=== PATIENT | female | born 2000 | race Caucasian/White ===

== ENCOUNTER 2020-10-05 13:35 | Inpatient (IN) | payer BC ==
[~2020-10-05] VITALS: Ht 147.3 cm; Wt 34.0 kg
--- NOTE | 2020-10-05 14:01 | NUR ---
THE PATIENT BIB [facility] FROM HOME,WITNESSED SEIZURE. ALERT AND ORIENTED X4. DENIES PAIN. IN ROOM AIR AND DENIES SOB. RESPIRATION REGULAR AND UNLABORED. WILL CONTINUE TO MONITOR THE PATIENT.
[2020-10-05] MEDS ORDERED: IV NS 0.9% 500 ML BAG IV ONE (14:30)
--- NOTE | 2020-10-05 14:56 | NUR ---
URINE COLLECTED AND SENT TO LAB
--- NOTE | 2020-10-05 14:57 | NUR ---
PATIENT TAKEN TO CT IN STABLE CONDITION
--- NOTE | 2020-10-05 15:01 | NUR ---
THE PATIENT IS BACK FROM CT IN STABLE CONDITION
[2020-10-05 15:14] LABS: BASOPHILS % (AUTO) 0.6 % (0.0-2.0); EOSINOPHILS % (AUTO) 1.3 % (0.0-6.0); HEMATOCRIT 35 % (33-45); HEMOGLOBIN 11.6 g/dL (11.5-14.8); LYMPHOCYTES # (AUTO) 0.6 K/uL (0.8-4.8); LYMPHOCYTES % (AUTO) 33.1 % (20.0-44.0); MEAN CORPUSCULAR HGB CONC 33 g/dl (31.0-36.0); MEAN CORPUSCULAR VOLUME 90 fL (82-100); MONOCYTES # (AUTO) 0.2 K/uL (0.1-1.30); MONOCYTES % (AUTO) 10.5 % (2.0-12.0); NEUTROPHILS % (AUTO) 54.5 % (43.0-81.0); PLATELET COUNT (AUTO) 153 K/uL (150-450); RED BLOOD CELL COUNT(AUTO) 3.87 MIL/uL (4.0-5.2)
[2020-10-05 15:15] LABS: CALCIUM, SERUM 8.4 mg/dL (8.5-10.1); CARBON DIOXIDE 31 mmol/L (21-32); CHLORIDE 106 mmol/L (98-107); CREATININE 0.7 mg/dL (0.6-1.3); GLUCOSE 151 mg/dL (74-106); POTASSIUM 3.3 mmol/L (3.5-5.1); SODIUM SERUM 144 mmol/L (136-145); UREA NITROGEN, BLOOD 9 mg/dL (7-18)
[2020-10-05 15:20] LABS: ALANINE AMINOTRANSFERASE 42 U/L (12-78); ALBUMIN 4.3 g/dL (3.4-5.0); ALCOHOL, BLOOD < 3 mg/dL (0-0); ALKALINE PHOSPHATASE 123 U/L (46-116); ASPARTATE AMINOTRANSFERASE 25 U/L (15-37); BILIRUBIN,DIRECT 0.1 mg/dL (0.0-0.2); BILIRUBIN,TOTAL 0.2 mg/dL (0.2-1.0); TOTAL PROTEIN, SERUM 6.6 g/dL (6.4-8.2)
[2020-10-05 15:25] LABS: WHITE BLOOD COUNT (AUTO) 1.8 K/uL (4.3-11.0)
--- NOTE | 2020-10-05 15:50 | NUR ---
LAB CALLED LACTIC ACID 2.5 INFORMED.
[2020-10-05] MEDS ORDERED: IV NS 0.9% 1,000 ML BAG IV ONE (16:00)
--- NOTE | 2020-10-05 16:08 | NUR ---
MOVE SHEET SUBMITTED AND CALLED FOR TELE BED.
[2020-10-05 16:20] LABS: BAND % (MANUAL) 1 % (0.0-5.0); LYMPHOCYTES % (MANUAL) 32 % (16-48); MONOCYTES % (MANUAL) 5 % (0-11.0); NEUTROPHILS % (MANUAL) 60 (42-76)
[2020-10-05 16:21] LABS: EOSINOPHILS % (MANUAL) 2 % (0-4)
[2020-10-05] MEDS ORDERED: LEVETIRACETAM (500MG) 500 MG in IV NS 0.9% 100 ML IV SCH (16:30)
--- NOTE | 2020-10-05 16:35 | NUR ---
[facility] CALLED, EYE GLASS FRAME POLISHER PAGED.
[2020-10-05 16:44] LABS: BILIRUBIN,URINE NEGATIVE (NEGATIVE); COLOR,URINE YELLOW (YELLOW); LEUKOCYTE ESTERASE ,URINE NEGATIVE (NEGATIVE); NITRITE, URINE NEGATIVE (NEGATIVE); PROTEIN,URINE NEGATIVE (NEGATIVE); UGLUCOSE NEGATIVE (NEGATIVE); UROBILINOGEN,URINE 0.2 EU/dL (0.2)
--- NOTE | 2020-10-05 16:58 | NUR ---
COVID SWAB DONE AND SENT TO THE LAB
[2020-10-05] MEDS ORDERED: MAGNESIUM HYDROXIDE 30 ML UDC PO PRN (17:00)
[2020-10-05] MEDS ORDERED: LORAZEPAM INJ 2 MG/ML VIAL IV PRN (17:00)
[2020-10-05] MEDS ORDERED: ACETAMINOPHEN 325 MG TABLET PO PRN (17:00)
[2020-10-05] MEDS ORDERED: MAG HYDROX/AL HYDROX/SIMETH 30 ML UDC PO PRN (17:00)
[2020-10-05] MEDS ORDERED: Z GUARD REMEDY 2 OZ OINT TP PRN (17:00)
[2020-10-05] MEDS ORDERED: ONDANSETRON HCL/PF 4 MG/2 ML VIAL IVP PRN (17:00)
[2020-10-05] MEDS ORDERED: IV NS 0.9% 1,000 ML IV PRN (17:00)
[2020-10-05] MEDS ORDERED: ZOLP10TA2 PO (17:01)
[2020-10-05] MEDS ORDERED: PROM118S5 PO (17:01)
[2020-10-05] MEDS ORDERED: TRAM50TA2 PO (17:01)
[2020-10-05] MEDS ORDERED: DULO60CA45 PO (17:01)
[2020-10-05] MEDS ORDERED: LUBI24CA5 PO (17:01)
[2020-10-05] MEDS ORDERED: QUET100T PO (17:01)
[2020-10-05] MEDS ORDERED: METO5TAB87 PO (17:01)
[2020-10-05] MEDS ORDERED: ONDA4TAB5 PO (17:01)
[2020-10-05] MEDS ORDERED: POTASSIUM CHLORIDE 20 MEQ TAB.PRT.SR PO ONE (18:00)
--- NOTE | 2020-10-05 18:28 | NUR ---
GOT BED 324-1
--- NOTE | 2020-10-05 18:32 | NUR ---
REPORT GIVEN TO NURSE JOSELIN
--- NOTE | 2020-10-05 19:10 | NUR ---
DRAPERY COUNSELOREXPERIMENTAL PHYSICIST NOTES RECEIVED PER JEANETH FROM ER THIS 20 YO FEMALE,ALERT,ORIENTED X4,BREATHING REGULAR,NOT IN ANY FORM OF DISTRESS.SALINE LOCK LEFT AC INTACT AND PATENT.AMBULATE WITH STEADY GAIT.NOTED LEFT KNEE SLIGHT REDNESS AND SWOLLEN SUSTAINED FROM FALL AT HOME WHILE HAVING SEIZURE.SEIZURE PRECAUTION INITIATED.SIDE RAILS PADDED FOR SAFETY.BED ON LOWEST POSITION AND LOCKED.CALL LIGHT IN REACH,NEEDS ANTICIPATED.
--- NOTE | 2020-10-05 19:21 | NUR ---
THE PATIENT IS TRANSFERED TO ROOM 324-1 IN STABLE CONDITION AND PER ACLS PROTOCOL.
--- NOTE | 2020-10-05 19:29 | NUR ---
FLEXOGRAPHIC PRINTING MACHINIST NOTES REPORTED BY LOGAN FROM LAB,LACTIC ACID 2.3,TRENDING DOWN FROM 2.5.WILL START ON IV FLUIDS.
[2020-10-05 19:30] VITALS: BP 95/63
[2020-10-05 20:00] VITALS: BP 95/63
--- NOTE | 2020-10-05 20:00 | NUR ---
PARCEL POST OFFICER NOTES STARTED ON IVF NS AT 100ML/HR RATE,INFUSING VIA IV PUMP.
--- NOTE | 2020-10-05 20:00 | NUR ---
MEDICAL INFORMATION SPECIALIST NOTES K LEVEL 3.3,K DUR 40MEQ PO GIVEN ONE TIME ORDER.
[2020-10-05] MEDS ORDERED: QUETIAPINE FUMARATE 100 MG TABLET PO SCH (22:00)
[2020-10-06] VITALS: BP 114/64
--- NOTE | 2020-10-06 00:23 | NUR ---
CHAIR FRAME BUILDER NOTES X-RAY LEFT KNEE DONE
[2020-10-06 04:00] VITALS: BP 107/62
[2020-10-06] MEDS ORDERED: LEVETIRACETAM (250 MG) 250 MG TABLET PO SCH (05:00)
[2020-10-06 05:57] LABS: BASOPHILS % (AUTO) 0.3 % (0.0-2.0); EOSINOPHILS % (AUTO) 1.5 % (0.0-6.0); HEMATOCRIT 31 % (33-45); HEMOGLOBIN 10.4 g/dL (11.5-14.8); LYMPHOCYTES # (AUTO) 1.1 K/uL (0.8-4.8); LYMPHOCYTES % (AUTO) 23.7 % (20.0-44.0); MEAN CORPUSCULAR HGB CONC 33 g/dl (31.0-36.0); MEAN CORPUSCULAR VOLUME 91 fL (82-100); MONOCYTES # (AUTO) 0.4 K/uL (0.1-1.30); MONOCYTES % (AUTO) 8.5 % (2.0-12.0); PLATELET COUNT (AUTO) 164 K/uL (150-450); RED BLOOD CELL COUNT(AUTO) 3.43 MIL/uL (4.0-5.2); WHITE BLOOD COUNT (AUTO) 4.6 K/uL (4.3-11.0)
--- NOTE | 2020-10-06 06:00 | NUR ---
FOREIGN LEGAL CONSULTANT NOTES MD VISIT DR NEWELL IN THE UNIT UNIT,MADE AWARE OF LACTIC ACID 2.3,WITH ORDER FOR ANOTHER LACTIC ACID THIS MORNING,NOTED AND CARRIED OUT.
[2020-10-06 06:17] LABS: CREATININE 0.5 mg/dL (0.6-1.3); PHOSPHORUS 3.7 mg/dL (2.5-4.9); POTASSIUM 4.7 mmol/L (3.5-5.1)
--- NOTE | 2020-10-06 06:20 | NUR ---
SET OFF BLOCKER NOTES FAIRLY RESTED AT NIGHT,NO SEIZURE ACTIVITY NOTED,,BRP,IVF INFUSING WELL ON LEFT AC SALINE LOCK.IN NO ACUTE DISTRESS.WILL ENDORSE TO DAY NURSE FOR TRACEY.
[2020-10-06 08:00] VITALS: BP 100/55
[2020-10-06] MEDS ORDERED: LEVE250T2 PO (09:46)
[2020-10-06] MEDS ORDERED: Medication Not On Formulary EA (Ondansetron Hcl (Zofran) 4 MG) PO PRN (10:00)
[2020-10-06] MEDS ORDERED: TRAMADOL HCL 50 MG TABLET PO PRN (10:00)
[2020-10-06] MEDS ORDERED: D-METHORPHAN HB/PROMETH HCL 5 ML UDC PO PRN (10:00)
--- NOTE | 2020-10-06 10:50 | NUR ---
MS/care director Patient discharged to home in stable condition. All personal belongings returned to patient and signed for on belongings list. Heplock removed, pressure dressing applied, tele monitor removed. Need to make follow up appointment with primary care doctor in 7-10 days, office to be called to set up convenient time. Prescription for keppra sent electronically to patient's preferred pharmacy. Instructed on new medication, made aware of possible side effects. Informed the importance of taking medication as prescribed to help prevent any further seizures. Patient stated understanding. Provided with copies of medical record to take to follow up visit with primary care doctor. Exit care signed by patient, copy provided. Escorted to main lobby by RN, mother providing transport home.
[2020-10-06] MEDS ORDERED: QUETIAPINE FUMARATE 100 MG TABLET PO SCH (22:00)
[2020-10-07] MEDS ORDERED: ZOLPIDEM TARTRATE 10 MG TABLET PO SCH (09:00)
[2020-10-07] MEDS ORDERED: DULOXETINE HCL 30 MG CAPSULE.DR PO SCH (09:00)
[2020-10-07] MEDS ORDERED: Medication Not On Formulary EA (Lubiprostone (Amitiza) 24 MCG) PO SCH (09:00)
[2020-10-07] MEDS ORDERED: METOCLOPRAMIDE HCL 10 MG TABLET PO SCH (09:00)
== END 2020-10-06 10:30 | disposition home or self-care (01) | DRG 100 ==
LOC: ER 14:05 → TELE 18:36
PROVIDERS: ADMIT Internal Medicine; ATTEND Internal Medicine
DX: R56.9 Unspecified convulsions (principal); E43 Unspecified severe protein-calorie malnutrition; R64 Cachexia; Z68.1 Body mass index [BMI] 19.9 or less, adult; F41.9 Anxiety disorder, unspecified; F32.9 Major depressive disorder, single episode, unspecified; D72.819 Decreased white blood cell count, unspecified; R63.0 Anorexia; G47.00 Insomnia, unspecified; Z20.822 Contact with and (suspected) exposure to COVID-19
CPT/HCPCS: 36415; 70450-TC; 71045-TC; 73564-TC; 80048-TC; 80076-TC; 82550-TC; 83605-TC; 83735-TC; 84100-TC; 84484-TC; 84703-TC; 85025-TC; 85730-TC; 87081-TC; 87086-TC; C9803; G0378; G0480; J1953; J7030